=== PATIENT | female | born 1980 | race African-American/Black ===

== ENCOUNTER 2020-05-28 20:21 | Observation (INO) | payer SELFPAY ==
[2020-05-28 21:17] LABS: AMNIO PT NEGATIVE
[2020-05-28 21:42] LABS: BILIRUBIN,URINE NEGATIVE (NEG); CLARITY,URINE CLEAR; COLOR,URINE YELLOW; NITRITE,URINE NEGATIVE (NEG); PROTEIN,URINE NEGATIVE (NEG-TRACE); UROBILINOGEN,URINE 0.2 mg/dL (0.2 mg/dL)
[2020-05-28 21:50] LABS: AMPHETAMINE/METHAMPHETAMINE NEG (NEG); BARBITURATES NEG (NEG); BENZODIAZEPINES NEG (NEG); CANNABINOIDS NEG (NEG); COCAINE NEG (NEG); METHADONE NEG (NEG); OPIATES NEG (NEG); PHENCYCLIDINE NEG (NEG)
[2020-05-28 21:53] LABS: SQUAMOUS EPITHELIAL CELL,UR MANY /LPF
[2020-05-28 21:54] LABS: BACTERIA,URINE MODERATE /HPF (0-FEW)
[2020-05-28 21:55] LABS: RBC,URINE RARE /HPF (0-2); TRICHOMONAS,URINE PRESENT
[2020-05-28] MEDS ORDERED: metroNIDAZOLE 500 MG TABLET PO ONE (22:15)
== END 2020-05-28 22:30 | disposition home or self-care (01) ==
LOC: 3 SO LND 20:21
PROVIDERS: ADMIT Obstetrics & Gynecology; ATTEND Obstetrics & Gynecology
DX: O62.9 Abnormality of forces of labor, unspecified (principal); O42.913 Preterm premature rupture of membranes, unspecified as to length of time between rupture and onset of labor, third trimester; O46.93 Antepartum hemorrhage, unspecified, third trimester; R35.0 Frequency of micturition; R30.0 Dysuria; Z80.0 Family history of malignant neoplasm of digestive organs; Z91.018 Allergy to other foods; Z3A.35 35 weeks gestation of pregnancy
CPT/HCPCS: 36415; 80307; 81001; 84112; 87086; G0378; G0379